=== PATIENT | female | born 1985 | race Caucasian/White ===

== ENCOUNTER → 2019-03-21 09:25 | Outpatient (BNVA) | payer BC, SELFPAY | PROVIDERS: Family Provider Nurse Practitioner Family; PCP Obstetrics & Gynecology; Visit Provider Nurse Practitioner | DX: E03.9 Hypothyroidism, unspecified (principal); E28.2 Polycystic ovarian syndrome; M79.10 Myalgia, unspecified site; E55.9 Vitamin D deficiency, unspecified; D64.9 Anemia, unspecified | CPT/HCPCS: 80053; 82306; 82607; 83540; 83550; 83735; 84443; 85025; 85651 ==

== ENCOUNTER → 2022-03-03 11:32 | Outpatient (BNVA) | payer OTHER, SELFPAY | PROVIDERS: Family Provider Nurse Practitioner Family; PCP Clinical Nurse Specialist Adult Health; Visit Provider Clinical Nurse Specialist Adult Health | DX: J06.9 Acute upper respiratory infection, unspecified (principal); Z20.822 Contact with and (suspected) exposure to COVID-19 | CPT/HCPCS: 87400; 87426 ==

== ENCOUNTER 2022-04-11 14:54 | Emergency (ER) | payer OTHER, SELFPAY ==
[2022-04-11 15:16] VITALS: BP 127/77; PULSE 99; RESP 19; TEMP 36.7; O2SAT 100; BMI 36.1
[2022-04-11 16:51] LABS: Basophils % 0.1 %; Eosinophils % 0.1 %; Hemoglobin 15.4 g/dL (11.5-15.3); Lymphocytes # 0.4 10^3/uL (0.8-4.8); Lymphocytes % 3.1 %; Mean Corpuscular HGB Conc 32.1 g/dL (30.0-36.0); Mean Corpuscular Volume 84.1 fl (81-99); Mean Platelet Volume 10.9 fL (7.4-10.4); Monocytes # 0.4 10^3/uL (0.2-0.9); Monocytes % 2.9 %; Neutrophils # 13.15 10^3/uL (1.8-7.7); Neutrophils % 93.4 %; Nucleated Red Blood Cells % 0 %; Platelet Count 217 10^3/cmm (130-400); Red Blood Count 5.71 10^6/uL (4.1-5.3); Red Cell Distribution Width 15.4 % (12.1-15.1); White Blood Count 14.1 10^3/uL (4.0-10.0)
--- NOTE | 2022-04-11 17:31 | USR_ITS ---
PROCEDURE INFORMATION: Exam: US , Limited Exam date and time: 04/11/2022 5:49 PM Age: 36 years old Clinical indication: Lmp or gestational age (in weeks): 10w5d; Other: Patient thinks she has food poisoning; ; Additional info: 11 weeks preg, n/v/d, cramping pain LABS AND CLINICAL REPORTS: Last menstrual period start date: 01/26/2022 Gestational age (Established): 10 w 5 d Estimated due date (Established): 11/02/2022 TECHNIQUE: Imaging protocol: Real-time ultrasound of the maternal uterus with image documentation. Exam focused on the clinical indication. COMPARISON: No relevant prior studies available. FINDINGS: Gestation: Gestational sac diameter: 3.33 cm heart rate: 189 bpm Placenta: 1.4 x 0.5 x 0.9 cm lentiform shaped hypoechoic region along the superior gestation, suspicious for a small subchorionic hemorrhage. BIOMETRY: Gestational age (AUA): 10 w 5 d Mullen-Rump length (CRL): 3.78 cm, 10 weeks 5 days MATERNAL: Cervix: Cervical length measures 3 cm. Right ovary/adnexa: 2.1 x 2.9 x 2.5 cm with normal blood flow. Left ovary/adnexa: 2.5 x 1.8 x 2.3 cm with normal blood flow. Urinary bladder: Unremarkable. US/US OB limited [id number] IMPRESSION: 1. Single viable intrauterine gestation estimated at 10 weeks 5 days 2. Suspected small superior subchronic hemorrhage. 3. tachycardia.
--- NOTE | 2022-04-11 17:33 | W.ED.NAVMDI ---
HPI - Nausea/Vomiting/Diarrhea General: Chief complaint: Nausea/Vomiting/Diarrhea Stated complaint: n/v/11wks preg Time Seen by Provider: 04/11/22 17:13 History of Present Illness: Patient is a G1 36-year-old female that is currently 11 weeks having nausea, vomiting, diarrhea and cramping pain. This is patient's first and and her have been trying to get now for 14 years. Symptoms started earlier this morning. Patient states she ate food late last night from a restaurant. Her symptoms started several hours later. did not have any similar symptoms after eating food, but he ate different meal. She describes waking up in [employer] and feeling very nauseous and then having multiple episodes of emesis and diarrhea all morning. She has had trouble keeping any food or fluids down all day. She is feeling dehydrated as well. She is having some abdominal cramping and describes feeling achy all over her body. Denies any vaginal bleeding or spotting. Denies any fevers Associated nausea: Yes Associated symtoms: Reports nausea; Denies change in vision, chest pain, dysuria, fatigue, headache(s) or palpitations Review of Systems Const: Denies: fever(s), chills or fatigue Eyes: Denies: change in vision or eye discomfort ENMT: Denies: throat pain, odynophagia, nasal discharge or nasal congestion Card: Denies: chest pain, palpitations, edema, swelling of feet/ankles, dyspnea on exertion or orthopnea Resp: Denies: dyspnea, productive cough or non-productive cough GI: Reports: nausea, vomiting and diarrhea; Denies: abdominal pain, constipation, GI cramping or hematochezia : Denies: flank pain, dysuria, hematuria or vaginal bleeding Musc: Denies: neck pain, back pain or extremity swelling Skin/Breast: Denies: rash or new lesions Neuro: Denies: headache(s), numbness in extremities or weakness in extremities PFSH ED PFSH: Medical History Adult hypothyroidism Folic acid deficiency Iron deficiency Panic attack PCOS (polycystic ovarian syndrome) Vitamin D deficiency Surgical History History of removal of ovarian cyst Family History Mother Cancer Social History Smoking and tobacco status: never smoked Second hand smoke exposure: No Smoking risk assessment/counseling performed?: No Alcohol intake: never Desire information about alcohol rehabilitation?: No Counseling given: No Desire information about substance/drug rehabilitation?: No Counseling given: No Caregiver/support person: No Lives independently: Yes Household members: spouse Marital status: service: No Current occupational status: employed Current gender identity: Female Physical Exam Const: COMMON NORMALS: patient oriented x3 and alert GENERAL APPEARANCE: cooperative HENMT: COMMON NORMALS: normocephalic HEAD & SCALP: normocephalic MOUTH: Normal oral and palatal mucosa present THROAT: posterior oropharynx normal and uvula midline Neck/C-Spine: COMMON NORMALS: supple GENERAL: Yes normal visual inspection Resp: COMMON NORMALS: normal respiratory effort, No retractions, No use of accessory muscles and clear to auscultation bilaterally AUSCULTATION: clear to auscultation bilaterally Cardio: COMMON NORMALS: regular rate, regular rhythm, S1 normal heart sound present, S2 normal heart sound present, No gallops present (Cardio), No clicks present (Cardio), No murmurs present (Cardio) and Peripheral pulses 2+ throughout RATE: regular rate RHYTHM: regular rhythm HEART SOUNDS: S1 normal heart sound present and S2 normal heart sound present PERIPHERAL PULSES: Peripheral pulses 2+ throughout GI: COMMON NORMALS: Normal to inspection, nondistended, normoactive bowel sounds present, Soft to palpation, non-tender and no masses PALPATION: Yes Soft to palpation : COMMON NORMALS: Yes no CVA tenderness BLADDER/KIDNEY EXAM: Yes no CVA tenderness Back/Pelvis: COMMON NORMALS: no CVA tenderness Extremity: COMMON NORMALS: normal to inspection Neuro: COMMON NORMALS: patient oriented x3 SENSORIUM/ORIENTATION: Yes alert GAIT: Yes Normal gait present Skin: GENERAL SKIN EXAM: dry skin Course Vital Signs: Vital signs: Vital Signs Temperature 98.0 F 04/11/22 15:16 Pulse Rate 99 04/11/22 15:16 Respiratory Rate 19 H 04/11/22 15:16 Blood Pressure 127/77 04/11/22 15:16 Pulse Oximetry 100 04/11/22 15:16 Oxygen Delivery Me thod 04/11/22 15:16 MDM - Nausea/Vomiting/Diarrhea Medical Decision Making Patient is a G1 36-year-old female that is currently 11 weeks having nausea, vomiting, diarrhea and cramping pain. This is patient's first and and her have been trying to get now for 14 years. Symptoms started earlier this morning. Patient states she ate food late last night from a restaurant. Her symptoms started several hours later. did not have any similar symptoms after eating food, but he ate different meal. She describes waking up in [employer] and feeling very nauseous and then having multiple episodes of emesis and diarrhea all morning. She has had trouble keeping any food or fluids down all day. She is feeling dehydrated as well. She is having some abdominal cramping and describes feeling achy all over her body. Denies any vaginal bleeding or spotting. Denies any fevers. Vitals are stable. Exam of patient is benign. White blood cell count 14 rest of CBC and CMP are unremarkable. UA is unremarkable as well. hCG beta quant 27,019. OB ultrasound shows a single viable intrauterine with gestation of about 10 weeks and 5 days. Suspected small superior some chronic hemorrhage. Patient is not having any vaginal bleeding. She was given a liter of IV fluids and nausea meds and her symptoms improved greatly. She is able to tolerate p.o. fluids here in the ED. She was stable for discharge home and diagnosed with likely food poisoning and . She was told to be on bedrest until she sees her OB doctor in 2 days. She was sent home with a prescription for nausea med. Return to ED precautions given. Patient understood and agreed with plan. Lab Data I reviewed the patient's lab results. 04/11/22 16:29 04/11/22 16:29 Radiology Impressions Obstetrics Ultrasound 04/11/22 17:31 IMPRESSION: 1. Single viable intrauterine gestation estimated at 10 weeks 5 days 2. Suspected small superior subchronic hemorrhage. 3. tachycardia. Laboratory Results WBC 14.1 10^3/uL (4.0-10.0) H 04/11/22 16:29 RBC 5.71 10^6/uL (4.1-5.3) H 04/11/22 16: Hgb 15.4 g/dL (11.5-15.3) H 04/11/22 16:29 Hct 48.0 % (37.0-47.0) H 04/11/22 16: MCV 84.1 fl (81-99) 04/11/22 16: MCH 27.0 pg (28.0-34.0) L 04/11/22 16: MCHC 32.1 g/dL (30.0-36.0) 04/11/22 16: RDW 15.4 % (12.1-15.1) H 04/11/22 16: Plt Count 217 10^3/cmm (130-400) 04/11/22 16: MPV 10.9 fL (7.4-10.4) H 04/11/22 16: Neut % (Auto) 93.4 % 04/11/22 16: Lymph % (Auto) 3.1 % 04/11/22 16: Geary % (Auto) 2.9 % 04/11/22 16: Eos % (Auto) 0.1 % 04/11/22 16:29 Baso % (Auto) 0.1 % 04/11/22 16:29 Neut # (Auto) 13.15 10^3/uL (1.8-7.7) H 04/11/22 16: Lymph # (Auto) 0.4 10^3/uL (0.8-4.8) L 04/11/22 16:29 Geary # (Auto) 0.4 10^3/uL (0.2-0.9) 04/11/22 16: Eos # (Auto) 0.0 10^3/uL (0.0-0.8) 04/11/22 16:29 Baso # (Auto) 0.0 10^3/uL (0.0-0.1) 04/11/22 16: Nucleated RBC % (auto) 0 % 04/11/22: Nucleated RBCs # 0.0 /100WBC 04/11/22 16: Sodium 134 mmol/L (136-145) L 04/11/22 16: Potassium 3.7 mmol/L (3.5-5.1) 04/11/22 16: Chloride 98 mmol/L (98-107) 04/11/22 16: Carbon Dioxide 19 mmol/L (22-29) L 04/11/22 16:29 Anion Gap 20.7 (5-19) H 04/11/22 16:29 BUN 8 mg/dL (6-20) 04/11/22 16:29 Creatinine 0.7 mg/dL (0.5-0.9) 04/11/22 16:29 GFR Calculation 94.2 mL/min (90-130) 04/11/22 16: Glucose 114 mg/dL (65-115) 04/11/22 16: Calculated Osmolality 277 mOsm/kg (285-295) L 04/11/22 16:29 Calcium 9.5 mg/dL (8.5-10.5) 04/11/22 16:29 Total Bilirubin 0.7 mg/dL (0.15-1.2) 04/11/22 16:29 AST 16 U/L (0-32) 04/11/22 16: ALT 12 U/L (0-33) 04/11/22 16:29 Alkaline Phosphatase 51 U/L (35-105) 04/11/22 16:29 Total Protein 7.6 g/dL (6.6-8.7) 04/11/22 16: Albumin 4.1 g/dL (3.5-5.2) 04/11/22 16:29 Globulin 3.5 g/dL (1.3-4.6) 04/11/22 16:29 Ser , Semi-Qnt 41025.00 mIU/mL 04/11/22 16:29 Urine Color Yellow (Yellow) 04/11/22 19:05 Urine Appearance Hazy (CLEAR) A 04/11/22 19:05 Urine pH 8 (5-7) H 04/11/22 19:05 Ur Specific [place] 1.010 (1.005-1.030) 04/11/22 19:05 Urine Protein Neg (Negative) 04/11/22 19:05 Urine Glucose (UA) Norm (Normal) 04/11/22 19:05 Urine Ketones 1+ (Negative) H 04/11/22 19:05 Urine Blood Neg (Negative) 04/11/22 19:05 Urine Nitrate Negative (Negative) 04/11/22 19:05 Urine Bilirubin Neg (Negative) 04/11/22 19:05 Prot Sulfosalicylic Acd Negative (Negative) 04/11/22 19:05 Urine Urobilinogen Norm mg/dL (Negative) 04/11/22 19:05 Ur Leukocyte Esterase Trace (Negative) H 04/11/22 19:05 Urine RBC 0-4 /hpf (0-2) H 04/11/22 19:05 Urine WBC 0-4 /hpf (0-5) H 04/11/22 19:05 Ur Squamous Epith Cells 25-40 /hpf (0-5) H 04/11/22 19:05 Amorphous Sediment Not Reportable 04/11/22 19:05 Urine Bacteria 1+ /hpf (NONE) H 04/11/22 19:05 Discharge Plan Discharge Patient Disposition: Home Clinical Impression: Food poisoning Qualifiers: Weeks of gestation: 10 weeks Qualified Code(s): Z3A.10 - 10 weeks gestation of Condition: Stable Prescriptions: New Reglan 10 mg tablet 10 mg PO Q6H PRN (Reason: nausea and vomiting) Qty: 12 0RF No Action levothyroxine 50 mcg tablet 50 mcg PO ONCE oseltamivir [Tamiflu] 75 mg capsule 75 mg PO BID 5 Days Qty: 10 0RF cholecalciferol (vitamin D3) 125 mcg (5,000 unit) capsule 5,000 unit PO DAILY Qty: 30 2RF Discharge Orders: Discharge ED (Routine); Ordered 04/11/22 Ordered By: Jr Arriaga Discharge Diet: Advance as tolerated Discharge Activity: Bedrest Patient Instructions: Food Poisoning (ED) Activity Restrictions/Additional Instructions: Follow-up with your OB provider at your next scheduled appointment this coming Monday. Bed rest until you see OB doctor. advance diet as tolerated. take medications as prescribed. Return to the ER or your medical provider if condition worsens. Please read and understand discharge instructions. Thank you for choosing [facility] for your healthcare needs today. Please realize this is an emergency room and that we are providing you with a medical screening exam and this may not be complete and all inclusive of all the testing and or work up that you may need to determine your ailment or severity of your illness. It is very important that you follow up as instructed or that you return to the Emergency Department should you have concerns or if your condition changes or worsens in any way. Stand Alone Forms: Work/School Release Coding Level of Care Code ED Guardian Ad Litem for Stoney Dodson
[2022-04-11 17:37] LABS: Slide Review Slide Review Perform
[2022-04-11 17:38] LABS: Alanine Aminotransferase 12 U/L (0-33); Albumin Level 4.1 g/dL (3.5-5.2); Alkaline Phosphatase 51 U/L (35-105); Anion Gap 20.7 (5-19); Aspartate Amino Transferase 16 U/L (0-32); Blood Urea Nitrogen 8 mg/dL (6-20); Calcium 9.5 mg/dL (8.5-10.5); Carbon Dioxide 19 mmol/L (22-29); Chloride 98 mmol/L (98-107); Globulin 3.5 g/dL (1.3-4.6); Glomerular Filtration Rate 94.2 mL/min (90-130); Glucose 114 mg/dL (65-115); Osmolality Calculated 277 mOsm/kg (285-295); Potassium 3.7 mmol/L (3.5-5.1); Sodium 134 mmol/L (136-145); Total Bilirubin 0.7 mg/dL (0.15-1.2); Total Protein 7.6 g/dL (6.6-8.7)
[2022-04-11] MEDS: sodium chloride 0.9% 1,000 ML 999 ML IV (17:42)
[2022-04-11] MEDS: metoclopramide 5 mg/mL SDV 2 mL 10 MG IVP (17:42)
[2022-04-11 19:41] LABS: Bilirubin Urine Neg (Negative); Blood Urine Neg (Negative); Glucose Urine UA Norm (Normal); Ketones Urine 1+ (Negative); Nitrate Urine Negative (Negative); Protein Urine Neg (Negative); Sulfosalicylic Acid Urine Negative (Negative); Urine Appearance Hazy (CLEAR); Urine Color Yellow (Yellow); pH Urine 8 (5-7)
[2022-04-11 19:42] LABS: Add Urine Microscopic? YES; Bacteria Urine 1+ /hpf; Leukocyte Esterase Urine Trace (Negative); RBC Urine 0-4 /hpf (0-2); Squamous Epithelial Cell Urine 25-40 /hpf (0-5); Urobilinogen Urine Norm (Negative); WBC Urine 0-4 /hpf (0-5)
[2022-04-11] MEDS: metoclopramide 10 mg Tablet PO (19:58)
--- NOTE | 2022-04-18 17:20 | DCPLANNER ---
03.12.23 - patient called due to no primary care physician - patient states that she sees someone in [place] [facility] - patient declines help for primary care at this time.
== END 2022-04-11 20:02 | disposition home or self-care (01) ==
PROVIDERS: Physician Assistant; Emergency Provider Physician Assistant
DX: O26.891 Other specified pregnancy related conditions, first trimester (principal); A05.9 Bacterial foodborne intoxication, unspecified; Z3A.11 11 weeks gestation of pregnancy
CPT/HCPCS: 36415; 76815; 80053; 81001; 84702; 85025; 96361; 96374; 99285; J2765; J7030; J8597